=== PATIENT | male | born 1930 | race Caucasian/White ===

== ENCOUNTER 2018-08-14 14:59 | Emergency (ER) | payer MEDICARE ==
[~2018-08-14] VITALS: Ht 177.8 cm; Wt 90.7 kg
[~2018-08-14 14:59] MED LIST: ASA81 PO; BALS750C6 PO; CLOP75TA32 PO; DONE5TAB3 PO; GLIP-214 PO; ISOS30TA6 PO; METO25TA6 PO; PANT20TA2 PO; PRAV20TA PO; SENN-153 PO; TRAZ-123 PO
[2018-08-14 15:00] VITALS: BP_SYST 137
[2018-08-14 16:26] LABS: PROTHROMBIN TIME 10.3 SECS (9.5-12.5)
[2018-08-14 16:28] LABS: HEMATOCRIT 39.6 % (36-54); HEMOGLOBIN 12.7 g/dL (14.0-18.0); MEAN CORPUSCULAR HEMOGLOBIN 30 pg (27-31); MEAN CORPUSCULAR HGB CONC 32 % (32-36); MEAN CORPUSCULAR VOLUME 93 fL (79.0-98.0); RED BLOOD CELL COUNT(AUTO) 4.27 MIL/uL (4.2-6.2); RED CELL DISTRIBUTION WIDTH 13.8 % (9.0-15.0)
[2018-08-14 16:29] LABS: PLATELET COUNT (AUTO) 276 K/uL (130-430); WHITE BLOOD COUNT (AUTO) 20.4 K/uL (4.8-10.8)
[2018-08-14 16:35] LABS: BAND % (MANUAL) 1 % (0-6); BASOPHILS % (MANUAL) 0 % (0-2); EOSINOPHILS % (MANUAL) 1 % (0-7); LYMPHOCYTES % (MANUAL) 20 % (20-46); METAMYELOCYTES % 2 % (0-0); MONOCYTES % (MANUAL) 9 % (0-11)
[2018-08-14] MEDS ORDERED: LEVOFLOXACIN 500 MG/D5W 100 ML IV ONE (18:00)
[2018-08-14 18:12] LABS: BILIRUBIN,URINE NEGATIVE (NEGATIVE); BLOOD, URINE 1+ (NEGATIVE); CLARITY/URINE CLEAR (CLEAR); COLOR,URINE YELLOW (YELLOW); GLUCOSE,URINE TRACE (NEGATIVE); KETONES,URINE NEGATIVE (NEGATIVE); LEUKOCYTE ESTERASE ,URINE 2+ (NEGATIVE); NITRITE, URINE POSITIVE (NEGATIVE); PH,URINE 6.5 (5.0-8.0); PROTEIN URINE NEGATIVE (NEGATIVE); UROBILINOGEN,URINE 0.2 (0.2-1.0)
[2018-08-14 18:21] LABS: BACTERIA,URINE MODERATE /HPF (None Seen); WBC,URINE 20-50 /HPF (0-3)
[2018-08-14 18:23] LABS: BARBITURATE, URINE NEGATIVE (NEG <=200); BENZODIAZEPINE, URINE POSITIVE (NEG <=150); CANNABINOID, URINE NEGATIVE (NEG <=50); COCAINE, URINE NEGATIVE (NEG <=150); METHAMPHETAMINES SCREEN,URINE NEGATIVE (NEG <=500); OPIATE, URINE POSITIVE (NEG <=100); PHENCYCLIDINE SCREEN,URINE NEGATIVE (NEG <=25); UR TRICYCLIC ANTIDEPRESSANTS NEGATIVE (NEG <=300); URINE AMPHETAMINE NEGATIVE (NEG <=500); URINE METHADONE NEGATIVE (NEG <=200); URINE OXYCODONE SCREEN NEGATIVE (NEG <=100); URINE PROPOXYPHENE SCREEN NEGATIVE (NEG <=300)
[2018-08-14 18:38] LABS: ALANINE AMINOTRANSFERASE 10 U/L (12-78); ANION GAP 7 (5-15); ASPARTATE AMINOTRANSFERASE 13 U/L (10-37); CALCIUM 9.3 mg/dL (8.4-11.0); CHLORIDE 101 mmol/L (98-107); CREATININE 1.09 mg/dL (0.55-1.30); GLUCOSE 89 mg/dL (70-99); POTASSIUM 4.1 mmol/L (3.5-5.1); SODIUM SERUM 135 mmol/L (136-145); TOTAL BILIRUBIN 0.4 mg/dL (0.0-1.0); UREA NITROGEN, BLOOD 21 mg/dL (8-21)
[2018-08-14 18:39] LABS: ALBUMIN 3.4 g/dL (3.4-4.8); ALCOHOL, BLOOD < 3 mg/dL (<10)
[2018-08-14] MEDS ORDERED: NS 500 ML IV ONE (19:15)
[2018-08-14 20:38] VITALS: BP_SYST 115
== END 2018-08-14 20:38 | disposition short-term general hospital (02) ==
LOC: SED 14:59
DX: A41.9 Sepsis, unspecified organism (principal); E11.9 Type 2 diabetes mellitus without complications; I10 Essential (primary) hypertension; Z79.899 Other long term (current) drug therapy; Z88.0 Allergy status to penicillin
CPT/HCPCS: 36415; 70450; 71045; 74018; 80053; 80307; 81000; 82140; 83605; 83880; 84439; 84484; 85007; 85027; 85610; 87040; 87086; 87186; 93005; 96361; 96365; 99285; G0482; J1956; J7030

== ENCOUNTER 2019-06-07 12:23 | Emergency (ER) | payer MEDICARE ==
[~2019-06-07] VITALS: Ht 167.6 cm; Wt 77.1 kg
[~2019-06-07 12:23] MED LIST changes: -GLIP-214 PO; +GLIP10TA21 PO; -TRAZ-123 PO; +TRAZ-218 PO
[2019-06-07 12:25] VITALS: BP_SYST 124
--- NOTE | 2019-06-07 12:27 | NUR ---
Placed in room [address] recording monitor, blood pressure machine and pulse oximeter. To gown for exam. Side rails up. Report given to Krunal SMITH.
--- NOTE | 2019-06-07 12:30 | NUR ---
Pt c/o generalized body pain. Pt h/o CHF, dementia,DM,GERD and DC.Pt has no acute resp distress noted at this time.
--- NOTE | 2019-06-07 12:31 | NUR ---
VALERIA vora at bedside examining patient.
[2019-06-07] MEDS ORDERED: MORPHINE 4 MG/ML INJ. SYRINGE IVP ONE (12:45)
[2019-06-07] MEDS ORDERED: NACL 0.9% 1,000 ML IV ONE (12:45)
[2019-06-07 12:57] LABS: BASOPHILS # (AUTO) 0.1 K/uL (0.0-0.2); EOSINOPHILS # (AUTO) 0.2 K/uL (0.0-0.4); EOSINOPHILS % (AUTO) 1.3 % (0.0-4.0); HEMATOCRIT 31.1 % (36-54); LYMPHOCYTES # (AUTO) 2.3 K/uL (1.0-5.5); LYMPHOCYTES % (AUTO) 19.1 % (20.5-51.5); MEAN CORPUSCULAR HEMOGLOBIN 27 pg (27-31); MEAN CORPUSCULAR HGB CONC 32 % (32-36); MEAN CORPUSCULAR VOLUME 85 fL (79.0-98.0); MONOCYTES # (AUTO) 1.4 K/uL (0.0-1.0); MONOCYTES % (AUTO) 11.8 % (1.7-9.3); NEUTROPHILS # (AUTO) 8.2 K/uL (1.8-7.7); NEUTROPHILS % (AUTO) 66.8 % (40.0-70.0); PLATELET COUNT (AUTO) 329 K/uL (130-430); RED BLOOD CELL COUNT(AUTO) 3.65 MIL/uL (4.2-6.2); RED CELL DISTRIBUTION WIDTH 16.1 % (9.0-15.0); WHITE BLOOD COUNT (AUTO) 12.2 K/uL (4.8-10.8)
[2019-06-07 13:11] LABS: ANION GAP 9 (5-15); CALCIUM 8.9 mg/dL (8.4-11.0); CHLORIDE 102 mmol/L (98-107); CREATININE 1.22 mg/dL (0.55-1.30); GLUCOSE 147 mg/dL (70-99); POTASSIUM 4.7 mmol/L (3.5-5.1); SODIUM SERUM 133 mmol/L (136-145); UREA NITROGEN, BLOOD 22 mg/dL (8-21)
[2019-06-07 13:19] LABS: ALANINE AMINOTRANSFERASE 8 U/L (12-78); ALBUMIN 2.4 g/dL (3.4-4.8); ASPARTATE AMINOTRANSFERASE 13 U/L (10-37); TOTAL BILIRUBIN 0.2 mg/dL (0.0-1.0)
--- NOTE | 2019-06-07 13:30 | NUR ---
# 20 gauge angiocath placed to LFA. Use of asceptic technique. Opsite placed over site. Blood return noted. Blood for lab drawn from site. Flushed with 10 cc of normal saline. No evidence of infiltration noted. Patient tolerated well.
[2019-06-07] MEDS ORDERED: DULO20CA PO (13:37)
[2019-06-07] MEDS ORDERED: INSU100V7 IJ (13:42)
[2019-06-07] MEDS ORDERED: ACET-2634 PO (13:42)
[2019-06-07] MEDS ORDERED: HYDR-4274 PO (13:42)
[2019-06-07] MEDS ORDERED: FEN12PAT TD (13:43)
[2019-06-07] MEDS ORDERED: DICL100G19 TP (13:45)
[2019-06-07] MEDS ORDERED: METO25TA6 PO (13:45)
--- NOTE | 2019-06-07 14:15 | NUR ---
Pt tolerated medicationand IVF.Pt tolerating well. Continuing to monitor.
[2019-06-07] MEDS ORDERED: fentaNYL CITRATE/PF 100 MCG/2 ML AMP IVP ONE (14:30)
--- NOTE | 2019-06-07 15:20 | NUR ---
Pt medicated for pain. Pt tolerated well.
--- NOTE | 2019-06-07 15:55 | NUR ---
Patient to be transferred to [facility]. Is being transferred due to higher level of care. Receiving facility has accepting physician and available space. ER physician has signed transfer form. Patient or responsible republican has agreed to transfer and signed form. Patient belongings inventoried and will be sent with patient. Copy of nursing notes, lab reports, EKG, Physicians Orders and X-rays to be sent with patient. Report called to Rodolfo SMITH at receiving facility. Receiving physician is . [facility] has been called for transfer. ETA is 1600.
[2019-06-07 16:00] VITALS: BP_SYST 127
--- NOTE | 2019-06-07 16:00 | NUR ---
Pt transported to [facility]. No acute distress noted at the time of transport.
== END 2019-06-07 16:00 | disposition short-term general hospital (02) ==
LOC: SED 12:23
DX: G89.29 Other chronic pain (principal); R07.89 Other chest pain; M54.9 Dorsalgia, unspecified; D64.9 Anemia, unspecified; J44.9 Chronic obstructive pulmonary disease, unspecified; E11.9 Type 2 diabetes mellitus without complications; I10 Essential (primary) hypertension; Z86.79 Personal history of other diseases of the circulatory system; G30.9 Alzheimer's disease, unspecified; Z88.0 Allergy status to penicillin; Z88.1 Allergy status to other antibiotic agents; Z79.899 Other long term (current) drug therapy
CPT/HCPCS: 36415; 71045; 80053; 84484; 85025; 93005; 96374; 96375; 99285; J2270; J3010; J7030